=== PATIENT | female | born 1945 | race Two or more races ===

== ENCOUNTER 2017-09-26 23:25 | Inpatient (IN) | payer MEDICARE, OTHER ==
[~2017-09-26] VITALS: Ht 160 cm; Wt 59.9 kg
--- NOTE | 2017-09-26 23:30 | NUR ---
ADMITTED THIS 71 YEARS OLD FEMALE, FROM [facility], PATIENT WAS PLACED ON 5150 HOLD DUE TO MAJOR DEPRESSION, SUICIDAL IDEATIONS, GRAVELY DISABLE, PATIENT HAS NO KNOW ALLERGY, ALERT X 3 AMBULATORY TO BATHROOM, WITH STEADY GAIT, SKIN INTACT PATENT, MARBELLA ANY PAIN OR DISCOMFORT AT THIS TIME, VITAL SIGN STABLE MARBELLA ANY HI/SI AT THIS TIME, WILL CONTINUES TO MONITOR THE PATIENT, EVERY 15 MINS FOR SAFETY AND FALL PRECAUTIONS.
[2017-09-27] MEDS ORDERED: MAGNESIUM HYDROXIDE 30 ML UDC PO PRN
[2017-09-27 00:16] VITALS: BP 138/84
[2017-09-27] MEDS ORDERED: OMEP20CA10 PO (00:41)
[2017-09-27] MEDS ORDERED: OLOP2.5D5 (00:41)
[2017-09-27 06:53] LABS: ALANINE AMINOTRANSFERASE 20 U/L (12-78); ALBUMIN 3.5 g/dL (3.4-5.0); ALKALINE PHOSPHATASE 79 U/L (46-116); ASPARTATE AMINOTRANSFERASE 16 U/L (15-37); BILIRUBIN,TOTAL 0.4 mg/dL (0.2-1.0); CALCIUM, SERUM 9.1 mg/dL (8.5-10.1); CARBON DIOXIDE 29 mmol/L (21-32); CHLORIDE 109 mmol/L (98-107); CREATININE 0.4 mg/dL (0.6-1.3); GLUCOSE 84 mg/dL (74-106); SODIUM SERUM 143 mmol/L (136-145); TOTAL PROTEIN, SERUM 6.7 g/dL (6.4-8.2); UREA NITROGEN, BLOOD 13 mg/dL (7-18)
[2017-09-27 07:08] LABS: CHOLESTEROL 300 mg/dL (<200); HDL CHOLESTEROL 69 mg/dL (40-60); LDL 185 mg/dL (0-99); TRIGLYCERIDES 188 mg/dL (30-150)
[2017-09-27 08:00] VITALS: BP 98/68
--- NOTE | 2017-09-27 12:39 | NUR ---
[id number]: NOTIFIED GLOBAL ANALYTICS HEAD FINK ABOUT PT NEEDING MEDICATION RECONCILIATION TO BE DONE AND PT IS COMPLAINING OF ABDOMINAL PAIN THAT RADIATES TO THE BACK AREA. ALSO NOTIFIED GLOBAL ANALYTICS HEAD FINK ABOUT LAB RESULTS ON 09/27/17: CHLORIDE= 109, CREATININE= 0.4, TRIGLYCERIDES= 188, LDL CHOLESTEROL 185, HDL CHOLESTEROL=69. GLOBAL ANALYTICS HEAD FINK WILL BE COME TO ASSESS THE PT.
[2017-09-27] MEDS: ACETAMINOPHEN 325 MG TABLET PO PRN (12:51)
[2017-09-27 15:43] VITALS: BP 113/74
[2017-09-27 15:43] LABS: BASOPHILS % (AUTO) 0.5 % (0.0-2.0); EOSINOPHILS # (AUTO) 0.1 /CMM (0.0-0.7); EOSINOPHILS % (AUTO) 1.9 % (0.0-6.0); HEMATOCRIT 41 % (33-45); HEMOGLOBIN 13.6 g/dL (11.5-14.8); LYMPHOCYTES # (AUTO) 2.1 /CMM (0.8-4.8); LYMPHOCYTES % (AUTO) 44.7 % (20.0-44.0); MEAN CORPUSCULAR HEMOGLOBIN 32 PG (26.0-33.0); MEAN CORPUSCULAR HGB CONC 33 g/dl (31.0-36.0); MEAN CORPUSCULAR VOLUME 95 fL (82-100); MONOCYTES # (AUTO) 0.5 /CMM (0.1-1.30); MONOCYTES % (AUTO) 10.5 % (2.0-12.0); NEUTROPHILS % (AUTO) 42.4 % (43.0-81.0); PLATELET COUNT (AUTO) 227 /CMM (150-450); RDW COEFFICIENT OF VARIATION 13.4 (11.5-15.0); WHITE BLOOD COUNT (AUTO) 4.6 K/uL (4.3-11.0)
--- NOTE | 2017-09-27 16:20 | NUR ---
Initial Discharge Note: Patient lives at home with her [address] [place] [address] ([phone]). Patient would like to return home upon discharge. remelt worker attempted to contact patient's Jaison Zaldivar ([phone]) however, he was unavailable, social insurance specialist left a detailed message with direct contact information. remelt worker will help form a safe and proper discharge.
[2017-09-27] MEDS: DULOXETINE HCL 30 MG CAPSULE.DR PO SCH (16:53)
[2017-09-27] MEDS: MAG HYDROX/AL HYDROX/SIMETH 30 ML UDC PO PRN (18:54)
[2017-09-27 20:08] VITALS: BP 154/90
[2017-09-28 08:00] VITALS: BP 120/78
[2017-09-28] MEDS: PANTOPRAZOLE 40 MG TABLET.DR PO SCH (08:22)
[2017-09-28] MEDS: DULOXETINE HCL 30 MG CAPSULE.DR PO SCH (08:22)
[2017-09-28] MEDS ORDERED: Medication Not On Formulary EA (Omeprazole 1 CAP) PO SCH (09:00)
[2017-09-28 09:47] LABS: BASOPHILS % (AUTO) 0.5 % (0.0-2.0); EOSINOPHILS # (AUTO) 0.1 /CMM (0.0-0.7); EOSINOPHILS % (AUTO) 1.4 % (0.0-6.0); HEMATOCRIT 40 % (33-45); HEMOGLOBIN 13.9 g/dL (11.5-14.8); LYMPHOCYTES # (AUTO) 1.8 /CMM (0.8-4.8); LYMPHOCYTES % (AUTO) 38.3 % (20.0-44.0); MEAN CORPUSCULAR HEMOGLOBIN 32 PG (26.0-33.0); MEAN CORPUSCULAR HGB CONC 35 g/dl (31.0-36.0); MEAN CORPUSCULAR VOLUME 93 fL (82-100); MONOCYTES # (AUTO) 0.5 /CMM (0.1-1.30); MONOCYTES % (AUTO) 9.6 % (2.0-12.0); NEUTROPHILS # (AUTO) 2.3 /CMM (1.8-8.9); NEUTROPHILS % (AUTO) 50.2 % (43.0-81.0); PLATELET COUNT (AUTO) 236 /CMM (150-450); RDW COEFFICIENT OF VARIATION 12.9 (11.5-15.0); RED BLOOD CELL COUNT(AUTO) 4.31 MIL/uL (4.0-5.2); WHITE BLOOD COUNT (AUTO) 4.7 K/uL (4.3-11.0)
[2017-09-28 09:58] LABS: CARBON DIOXIDE 28 mmol/L (21-32); CHLORIDE 105 mmol/L (98-107); CREATININE 0.5 mg/dL (0.6-1.3); GLUCOSE 98 mg/dL (74-106); SODIUM SERUM 141 mmol/L (136-145)
[2017-09-28 10:14] LABS: ALANINE AMINOTRANSFERASE 23 U/L (12-78); ALBUMIN 3.4 g/dL (3.4-5.0); ALKALINE PHOSPHATASE 81 U/L (46-116); ASPARTATE AMINOTRANSFERASE 16 U/L (15-37); BILIRUBIN,DIRECT 0.1 mg/dL (0.0-0.2); BILIRUBIN,TOTAL 0.5 mg/dL (0.2-1.0); TOTAL PROTEIN, SERUM 6.6 g/dL (6.4-8.2); UREA NITROGEN, BLOOD 13 mg/dL (7-18)
--- NOTE | 2017-09-28 13:01 | NUR ---
dope maintenance worker spoke to patient's Jaison Zaldivar ([phone]) who confirmed that patient lives at home with him and can return home upon discharge. Per Jaison, patient will need transportation and group social worker should inquire about getting transportation through [facility] [place]. Per Jaison, if there is absolutely no one that can provide transportation than he would ask his caregiver dope maintenance worker will follow-up.
[2017-09-28 16:00] VITALS: BP 134/76
[2017-09-28 20:00] VITALS: BP 127/77
[2017-09-29 08:00] VITALS: BP 102/66
[2017-09-29] MEDS: ACETAMINOPHEN 325 MG TABLET PO PRN (08:30)
[2017-09-29] MEDS: DULOXETINE HCL 30 MG CAPSULE.DR PO SCH (08:30)
[2017-09-29] MEDS: PANTOPRAZOLE 40 MG TABLET.DR PO SCH (08:30)
--- NOTE | 2017-09-29 08:31 | NUR ---
METALSMITH-NOTES PATIENT C/O STOMACHACHE AND REQUESTING FOR TYLENOL. TYLENOL 650MG P.O GIVEN PRN ORDER. WILL CONT. MONITORING.
--- NOTE | 2017-09-29 12:05 | NUR ---
AYDIN-BETTIE FINK SEEN THE PATIENT WITH VERBAL ORDER OF [facility] CLEAN CATCH. Addendum: 09/29/17 at 1208 by GIULIANO LICONA LVN NOTED NAD CARRIED OUT.
[2017-09-29 16:00] VITALS: BP 104/62
[2017-09-29 16:53] LABS: APPEARANCE,URINE CLEAR (CLEAR); BILIRUBIN,URINE NEGATIVE (NEGATIVE); BLOOD, URINE TRACE-INTA Ery/uL (NEGATIVE); COLOR,URINE YELLOW (YELLOW); KETONES,URINE TRACE (NEGATIVE); LEUKOCYTE ESTERASE ,URINE NEGATIVE (NEGATIVE); NITRITE, URINE NEGATIVE (NEGATIVE); PROTEIN,URINE NEGATIVE (NEGATIVE); UGLUCOSE NEGATIVE (NEGATIVE)
[2017-09-29 17:55] LABS: BACTERIA,URINE Few /HPF (None Seen); SQUAMOUS EPITHELIAL CELL,UR Moderate /HPF (None Seen); WBC,URINE 0-2 /HPF (0-3); YEAST,URINE Rare /HPF (None Seen)
--- NOTE | 2017-09-29 19:27 | NUR ---
JUNIOR JAVA DEVELOPER-NOTES FOLLOW UP WITH RADIOLOGY REGARDING XR OF THE RIGHT RIBS PER KAYLEEN( RADIOLOGY STAFF) WILL DO TOMORROW.ENDORSED TO THE INCOMING NURSE.
[2017-09-29 20:00] VITALS: BP 105/61
[2017-09-30 08:00] VITALS: BP 119/66
[2017-09-30] MEDS: DULOXETINE HCL 30 MG CAPSULE.DR PO SCH (08:05)
[2017-09-30] MEDS: PANTOPRAZOLE 40 MG TABLET.DR PO SCH (08:05)
[2017-09-30] MEDS: ACETAMINOPHEN 325 MG TABLET PO PRN ×2 (08:50→21:39)
[2017-09-30 16:00] VITALS: BP 100/63
[2017-09-30 20:00] VITALS: BP 109/69
--- NOTE | 2017-09-30 21:08 | NUR ---
GPS/RN-PATIENT REQUESTED SLEEPING PILL.RESTORIL 15MG.ORDER OBTAINED FROM .IN ADDITION,HE ORDERED KLONOPIN 0.5 MG.Q 4HRS. PRN FOR ANXIETY.
[2017-09-30] MEDS ORDERED: TEMAZEPAM 15 MG CAPSULE ONE (21:14)
[2017-09-30] MEDS ORDERED: clonazePAM 0.5 MG TABLET PO PRN (21:30)
[2017-09-30] MEDS: TEMAZEPAM 15 MG CAPSULE PO PRN (21:41)
[2017-10-01 08:00] VITALS: BP 101/66
[2017-10-01] MEDS: DULOXETINE HCL 30 MG CAPSULE.DR PO SCH (08:47)
[2017-10-01] MEDS: PANTOPRAZOLE 40 MG TABLET.DR PO SCH (08:47)
[2017-10-01 16:17] VITALS: BP 103/73
[2017-10-01 20:00] VITALS: BP 108/66
--- NOTE | 2017-10-01 20:40 | NUR ---
GPS/RN-PATIENT COMPLAINED OF PAIN 4/10 ON HER (R) RIB.NON PHARMACOLOGICAL INTERVENTION DONE BUT NO RELIEF.TYLENOL 650MG. PO GIVEN ORDERED.
[2017-10-01] MEDS: ACETAMINOPHEN 325 MG TABLET PO PRN (20:53)
--- NOTE | 2017-10-01 23:15 | NUR ---
GPS/RN-PATIENT VERBALIZED INABILITY TO SLEEP.OFFERED MILK BUT REFUSED.ADDITIONAL BLANKET GIVEN,KEPT COMFORTABLE.RESTORIL 15 MG.PO GIVEN ORDERED.
[2017-10-01] MEDS: TEMAZEPAM 15 MG CAPSULE PO PRN (23:23)
[2017-10-02] MEDS: PANTOPRAZOLE 40 MG TABLET.DR PO SCH (07:50)
[2017-10-02 08:00] VITALS: BP 115/72
[2017-10-02] MEDS: DULOXETINE HCL 30 MG CAPSULE.DR PO SCH (08:04)
[2017-10-02 15:26] VITALS: BP 143/84
--- NOTE | 2017-10-02 19:30 | NUR ---
RN NOTE; RECEIVED PT IN SITTING ON THE CHAIR HER ROOM COMFORTABLY. ALERT AND RESPONSIVE. PREFERRED TO BE QUIET. NO COMBATIVE BEHAVIOR. NO C/O PAIN OR DISCOMFORT. NO VERBALIZATION OF SADNESS OR SUICIDE. WILL CONT TO MONITOR.
[2017-10-02 20:00] VITALS: BP 125/82
[2017-10-02 20:22] VITALS: BP 125/52
[2017-10-02] MEDS: ACETAMINOPHEN 325 MG TABLET PO PRN (20:29)
[2017-10-02] MEDS: TEMAZEPAM 15 MG CAPSULE PO PRN (20:29)
--- NOTE | 2017-10-02 20:30 | NUR ---
TYLENOL GIVEN ORDERED PER PT'S REQUEST FOR C/O MILD BLEs PAIN. ALSO RESTORIL GIVEN PER PT'S REQUEST FOR C/O INSOMNIA, WILL CONT TO MONITOR ,
--- NOTE | 2017-10-03 06:46 | NUR ---
RN NOTE; PT IN BED SLEEPING, AROUSES EASILY. PT REMAINED COMPLIANT W/ MED AND POC . NO PSYCH OR BEHAVIORAL ISSUES NOTED. NEEDS ATTENDED. BED LOW LOCKED .WILL CONT TO MONITOR AND WILL ENDORSE TO AM SHIFT FOR ALICIA .
[2017-10-03 08:00] VITALS: BP_SYST 110; BP_SYST 116; BP_DIAS 58; BP_DIAS 76
[2017-10-03] MEDS: PANTOPRAZOLE 40 MG TABLET.DR PO SCH (08:49)
[2017-10-03] MEDS: DULOXETINE HCL 30 MG CAPSULE.DR PO SCH (08:49)
[2017-10-03] MEDS: ACETAMINOPHEN 325 MG TABLET PO PRN ×2 (08:55→16:06)
[2017-10-03 16:51] VITALS: BP 117/66
--- NOTE | 2017-10-03 19:30 | NUR ---
GPS RN NOTE, RECEIVED PATIENT AWAKE AND IN BED HAS A COMPLAINT OF RIGHT KNEE PAIN AT 2 OUT OF 10 ON THE PAIN SCALE. PATIENT IS BEING TREATED WITH ORAL PAIN MEDICATION FOR THIS PAIN. PATIENT IS DISPLAYING NO S/S OF APPARENT DISTRESS AT THIS TIME. PATIENT BREATHING IS UNLABORED WITH EQUAL RISE AND FALL OF THE CHEST. PATIENT IS ALERT AND ORIENTED X 2 ON ROOM AIR WITH A SPOO2 98 %. PATIENT IS MED COMPLIANT, DEPRESSED, DISORGANIZED, AND NEEDS REORIENTATION. PATIENT DENIES SUICIDE IDEATIONS AND HOMICIDAL IDEATIONS AT THIS TIME. PATIENT ASSISTED WITH TURNING AND REPOSITIONING Q2HR AND PRN FOR COMFORT AND CIRCULATION. PATIENT HAS NO NEEDS AT THIS TIME. PATIENT EDUCATED ON THE USE OF THE CALL CIFUENTES. PATIENT BED SIDE RAILS UP X 2 FOR SAFETY. PATIENT BED IS LOCKED AND LOW WILL CONTINUE TO MONITOR AND MAINTAIN SAFETY Q15 MIN WITH THE HELP OF STAFF.
[2017-10-03 20:40] VITALS: BP 119/73
[2017-10-03] MEDS: TEMAZEPAM 15 MG CAPSULE PO PRN (21:23)
--- NOTE | 2017-10-03 21:23 | NUR ---
GPS RN NOTE, PATIENT HAS A COMPLAINT OF NOT BEING ABLE TO SLEEP AND IS REQUESTING RESTORIL AT THIS TIME. PATIENT VITAL SIGNS ARE STABLE. GAVE RESTORIL 15MG PO GS ORDERED. WILL REASSESS FOR INSOMNIA AND I WILL CONTINUE TO MONITOR THIS PATIENT.
--- NOTE | 2017-10-03 21:47 | NUR ---
GPS RN NOTE, PATIENT HAS A COMPLAINT OF RIGHT KNEE PAIN AT 3 OUT 10 ON THE PAIN SCALE AND IS REQUESTING PAIN MEDICATION AT THIS TIME. PAGED [facility] AND INFORMED VIDHYA GRIFFITH OF MY FINDINGS. VIDHYA GRIFFITH ORDER TRAMADOL 50 MG PO Q8HR PRN. ALL ORDERS NOTED AND CARRIED OUT WILL CONTINUE TO MONITOR THIS PATIENT.
[2017-10-03] MEDS ORDERED: TRAMADOL HCL 50 MG TABLET PO PRN (22:00)
[2017-10-04] MEDS: PANTOPRAZOLE 40 MG TABLET.DR PO SCH (07:30)
[2017-10-04 08:00] VITALS: BP 108/67
[2017-10-04] MEDS: DULOXETINE HCL 30 MG CAPSULE.DR PO SCH (08:49)
[2017-10-04 16:09] VITALS: BP 122/78
[2017-10-04 20:59] VITALS: BP 123/80
[2017-10-04] MEDS: MAG HYDROX/AL HYDROX/SIMETH 30 ML UDC PO PRN (21:42)
[2017-10-04] MEDS: TEMAZEPAM 15 MG CAPSULE PO PRN (21:44)
[2017-10-05 08:00] VITALS: BP 121/72
[2017-10-05] MEDS: DULOXETINE HCL 30 MG CAPSULE.DR PO SCH (08:53)
[2017-10-05] MEDS: PANTOPRAZOLE 40 MG TABLET.DR PO SCH (08:54)
[2017-10-05 16:50] VITALS: BP 132/84
[2017-10-05 20:14] VITALS: BP 124/72
[2017-10-06 08:00] VITALS: BP 110/66
[2017-10-06] MEDS: DULOXETINE HCL 30 MG CAPSULE.DR PO SCH (09:17)
[2017-10-06] MEDS: PANTOPRAZOLE 40 MG TABLET.DR PO SCH (09:17)
--- NOTE | 2017-10-06 15:17 | NUR ---
graphic pre press trades worker attempted to contact patients Jaison Zaldivar ([phone]) twice today in regards to patient's transportation upon discharge, however, he was unavailable. graphic pre press trades worker left a detailed voicemail with her contact information. graphic pre press trades worker will follow-up.
[2017-10-06 16:00] VITALS: BP 110/66
[2017-10-06 20:00] VITALS: BP 101/63
[2017-10-07] MEDS: TEMAZEPAM 15 MG CAPSULE PO PRN ×2 (01:20→21:46)
[2017-10-07 08:00] VITALS: BP 119/67
[2017-10-07] MEDS: DULOXETINE HCL 30 MG CAPSULE.DR PO SCH (08:31)
[2017-10-07] MEDS: PANTOPRAZOLE 40 MG TABLET.DR PO SCH (08:31)
--- NOTE | 2017-10-07 13:52 | NUR ---
Discharge Note: Patient will be discharged tomorrow and will be returning home [address] [place] [address] ([phone]) via [employer]. Patient's Jaison Zaldivar ([phone]) has been notified. Patient and patient's are agreeable with the discharge plan. Patient denies suicidal and homicidal ideations. [facility] [address] [place] [address] ([phone]). Facilitated info to IDT team who are in agreement with discharge arrangement. The multidisciplinary exitcare form was done, printed, signed, and given to the patient.
[2017-10-07 16:10] VITALS: BP 107/75
[2017-10-07 20:00] VITALS: BP 120/76
[2017-10-08] MEDS: PANTOPRAZOLE 40 MG TABLET.DR PO SCH (07:52)
[2017-10-08 08:00] VITALS: BP 105/73
--- NOTE | 2017-10-08 08:09 | NUR ---
DR. IGLESIAS GAVE AN ORDER TO D/C HOLD AND D/C HOME TODAY. PT. WITHOUT DISTRESS, DENIES SUICIDAL AND HOMICIDAL. TO FOLLOW UP WITH PSYCH AND MEDICAL DOCTORS.
[2017-10-08] MEDS: DULOXETINE HCL 30 MG CAPSULE.DR PO SCH (08:57)
--- NOTE | 2017-10-08 09:17 | NUR ---
CALLED KHANH BLAKE AT [phone] AND MADE AWARE OF THE DISCHARGE AND AGREED.
--- NOTE | 2017-10-08 11:19 | NUR ---
CHERYL WRIGHT MADE AWARE OF THE DISCHARGE AND SAID OK FOR DISCHARGE AND WROTE A PRESCRIPTION.
--- NOTE | 2017-10-08 11:47 | NUR ---
AYDIN-NOTES PATIENT WAS DISCHARGE TO HOME TODAY. DR. IGLESIAS AND DESIGN/ANIMATION INSTRUCTOR KYLE AWARE AND AGREES OF PATIENT DISCHARGE. ALL DISCHARGE MEDICATIONS WAS REVIEWED WITH THE PATIENT WITH UNDERSTANDING. RX WAS GIVEN TO THE PATIENT.CHARGE NURSE MADE PATIENT KHANH BLAKE ([phone]) AWARE OF THE DISCHARGE. PATIENT DID NOT VERBALIZED SI/HI,DENIES VISUAL AUDITORY HALLUCINATIONS AT THE TIME OF DISCHARGE. PATIENT LEFT THE UNIT IN STABLE CONDITION,AMBULATORY WITH ALL HER BELONGINGS. INSULATION BOARD COATER OPERATOR BY [facility] ([employer]) . Addendum: 10/08/17 at 1157 by GIULIANO LICONA LVN IN ADDITION TO MY NOTES ABOVE, PATIENT STRONGLY REFUSED BODY ASSESSMENT PRIOR TO DISCHARGE DESPITE EXPLANATIONS OF HOSPITAL POLICIES.
== END 2017-10-08 11:45 | disposition home or self-care (01) | DRG 885 ==
LOC: GPS 23:41
PROVIDERS: ADMIT Psychiatry & Neurology Psychiatry; ATTEND Psychiatry & Neurology Psychiatry
DX: F33.2 Major depressive disorder, recurrent severe without psychotic features (principal); R45.851 Suicidal ideations; K76.0 Fatty (change of) liver, not elsewhere classified; E78.5 Hyperlipidemia, unspecified; K21.9 Gastro-esophageal reflux disease without esophagitis; F41.9 Anxiety disorder, unspecified; I70.8 Atherosclerosis of other arteries; M94.0 Chondrocostal junction syndrome [Tietze]
CPT/HCPCS: 36415; 71100-TC; 76705-TC; 80048-TC; 80053-TC; 80061-TC; 80076-TC; 81000-TC; 83690-TC; 84484-TC; 85025-TC; 87081-TC